=== PATIENT | male | born 1995 | race Hispanic/Latino ===

== ENCOUNTER 2023-05-25 09:08 | Emergency (ER) | payer OTHER ==
[~2023-05-25] VITALS: Ht 182.9 cm; Wt 72.6 kg
[2023-05-25] MEDS ORDERED: IBUP-2070 PO (10:51)
[2023-05-25] MEDS ORDERED: KETOROLAC 30MG VIAL (30MG/ML) IM ONE (11:00)
[2023-05-25 11:03] VITALS: BP 132/74; PULSE 68; RESP 16; O2SAT 99
== END 2023-05-25 11:02 | disposition home or self-care (01) ==
LOC: EDH 09:08
DX: S10.83XA Contusion of other specified part of neck, initial encounter (principal); X58.XXXA Exposure to other specified factors, initial encounter; Y93.89 Activity, other specified; Y92.89 Other specified places as the place of occurrence of the external cause; Y99.8 Other external cause status; Z90.89 Acquired absence of other organs
CPT/HCPCS: 99283; 96372; J1885

== ENCOUNTER 2025-04-15 21:00 | Emergency (ER) | payer SELFPAY ==
[~2025-04-15] VITALS: Ht 182.9 cm; Wt 68.0 kg
[~2025-04-15 21:00] MED LIST: IBUP-1492 PO
[2025-04-15] MEDS ORDERED: CLIN-141 PO (21:43)
--- NOTE | 2025-04-15 21:55 | ERN ---
ED Note History of Present Illness Stated Complaint: " BALL" UNDER RT AXILLARY Chief Complaint: Other Problems Time Seen by MD: 21:04 Time Seen by Midlevel: 21:06 Dictation: 29-year-old male with no past medical history coming in with complaints of a p ull lump under the right axilla for a week and a her. Denies having any fever, nausea and vomiting, no injury to that area. Denies any night sweats or recent weight loss. Allergies: Coded Allergies: No Known Drug Allergies (Unverified Allergy, Unknown, 05/25/23) Home Meds Active Scripts Ibuprofen (Ibuprofen) 600 Mg Tablet, 600 MG PO Q6H PRN for PAIN, #15 TAB 0 Refills Prov:BRIJESH UP TELLY 05/25/23 Past Medical History Past Medical History: No Pertinent History Surgical History: Tonsillectomy Social History: Lives with family, Other Review of System Dictation Constitutional: Negative for fever,chills, and weight loss Eyes: Negative for injury, pain,redness, and discharge ENT: Negative for injury,pain or swelling Cardiovascular: Negative for chest pain, palpitations, and edema Respiratory: Negative for shortness of breath, cough, and wheezing, Abdomen/GI: Negative for abdominal pain, nausea, vomiting, diarrhea, and constipation Back: Negative for injury and pain : Negative for injury, bleeding and discharge MS/Extremity: Negative for injury and deformity, right axillary pain Skin: Negative for rash, and discoloration Neuro: Negative for headache, weakness, numbness, tingling, and seizure Psych: Negative for suicide ideation, homicidal ideation, and hallucinations Review of Systems: was completed Initial Vital Sign VS Vital Signs Date Time Temp Pulse Resp B/P (MAP) Pulse Ox O2 Delivery O2 Flow Rate FiO2 04/15/25 21:01 98.1 86 18 156/98 100 Room Air Physical Exam Dictation General: awake, alert, NAD Head/Face: Normocephalic, atraumatic Eyes: PERRL, EOMI, vision at baseline ENT: oral cavity clear, TMs clear, no signs of infection Neck: Trachea midline, supple, no nuchal rigidity Cardiovascular: RRR, normal S1/S2, No MRGs, no JVD Respiratory: CTAB, no respiratory distress, No rales or wheezes Abdomen: Soft, non-tender, non-distended, normal bowel sounds, no guarding or re bound. Skin: Warm, dry, normal turgor, no rash MS/Extremity: Pulses equal, no cyanosis, neurovascular intact, FROM movable, painful, mass noted to the right axilla. There is no redness, no open wound, no streaking, no signs of any infectious process Neuro: COAx4, GCS 15, strength 5/5, CN 2-12 intact, normal cerebellar exam, normal gait, Psych: Normal behavior, mood, and affect normal ED Course ED Course Orders Procedure Category Date Status Time Us Soft Tissue Axilla US 04/15/25 Taken 21:08 Vital Signs Date Time Temp Pulse Resp B/P (MAP) Pulse Ox O2 Delivery O2 Flow Rate FiO2 04/15/25 21:01 98.1 86 18 156/98 100 Room Air Medical Decision Making MDM MDM: 29-year-old male with no past medical history coming in with complaints of a pull lump under the right axilla for a week and a her. Denies having any fever, nausea and vomiting, no injury to that area. Denies any night sweats or recent weight loss. Their report of the ultrasound shows a inflammatory lymph node Tg complex structure noted abuse needs in the lymph nodes possible hematoma. Case discussed with ear attending, okay to discharge patient with antibiotics and follow up outpatient with the PCP. Differential diagnosis: Abscess, folliculitis, cellulitis Rationale: Tests considered and ordered secondary to shared decision making include: Previous outside records reviewed: Old ER visits. Risk of complication and/or morbidity or mortality of patient management: None Medications-Per medication reconciliation Need for hospitalization: Patient does not meet criteria for hospitalization. Need for emergency major/minor surgery: No There are no social concerns with this patient. Prescription drug management Prescriptions will include symptomatic care Patient's prior external medical records from other ER visits were reviewed by me as indicated. Prior testing and results from previous visits were reviewed. Prior tests were taken into account with medical decision making and resource utilization, independent historian/historians were used to obtain complete medical history. I independently interpreted the test that were performed, results were reviewed by me and considered findings on radiology if ordered. Medical management and examination interpretation discussions were had by me with other qualified healthcare professionals as indicated for the patient's care. DX & DISP Disposition: Discharge Departure Impression: Primary Impression: Lymph node enlargement Additional Impression: Hematoma Condition: Stable Scripts Clindamycin HCl (Clindamycin HCl) 300 Mg Capsule 1 CAP PO TID for 7 Days, #30 CAP 0 Refills Prov: MARY LOVE CNP 04/15/25 Additional Instructions: Your ultrasound shows a enlarged lymph node in a abnormal finding next your lymph node possibly hematoma. Take the antibiotics as prescribed and follow up with PCP. Referrals: SELF,REFERRAL (PCP) Time of Disposition: 21:43 I have reviewed the case, and I agree with, Diagnosis and Plan MARY LOVE CNP Apr 15, 2025 21:55
--- NOTE | 2025-04-15 22:16 | HMCIMG ---
EXAMINATION: SOFT TISSUE ULTRASOUND OF THE RIGHT AXILLA. CLINICAL HISTORY: Lump. COMPARISON: None. TECHNIQUE: Transverse and longitudinal images were obtained in the right axilla. FINDINGS: There is an enlarged lymph node that measures 2.4 x 1.0 x 1.1 cm in the right axilla in craniocaudal, AP, and transverse dimensions, respectively. Hilar echoes are maintained. No increased vascularity. Two other lymph nodes measure 0.9 x 0.9 x 1.1 cm and 1.3 x 1.6 x 1.5 cm in the right axilla. Hilar echoes are not well visualized. No increased vascularity. There is a complex area that measures 1.7 x 1.5 x 1.9 cm adjacent to the larger lymph node. IMPRESSION: Right axillary lymphadenopathy. Possible hematoma adjacent to the larger lymph node. Recommend contrast-enhanced MRI. /Karly
[2025-04-15 22:36] VITALS: BP 128/72; PULSE 78; RESP 20; TEMP 98; O2SAT 100
== END 2025-04-15 22:37 | disposition home or self-care (01) ==
LOC: EDH 21:00
DX: S40.021A Contusion of right upper arm, initial encounter (principal); R59.0 Localized enlarged lymph nodes; Z90.89 Acquired absence of other organs; X58.XXXA Exposure to other specified factors, initial encounter; Y93.89 Activity, other specified; Y92.89 Other specified places as the place of occurrence of the external cause; Y99.8 Other external cause status
CPT/HCPCS: 76882; 99284